=== PATIENT | male | born 1970 | race Caucasian/White ===

== ENCOUNTER 2020-05-06 08:24 | Emergency (ER) | payer SELFPAY ==
[~2020-05-06] VITALS: Ht 175.3 cm; Wt 68.2 kg
[~2020-05-06 08:24] MED LIST: ALPRAZOLAM0.5 M1 PO; AMOXICILLIN 50500 MG PO; DAZIDOX10 MG PO; FLEXERIL 1010 MG/TAB PO; NORCO 325 MG-51 TAB PO; PEN-V500 MG PO; PERCOCET 325 MG1 TA2 PO; ROXICODONE 55 MG/TAB PO
[2020-05-06] MEDS ORDERED: DOXYCYCLINE 10100 MG PO (09:22)
[2020-05-06] MEDS ORDERED: CEPHALEXIN500 M1 PO (09:22)
[2020-05-06 10:05] VITALS: BP 122/78; PULSE 88; TEMP 98.3
== END 2020-05-06 10:07 | disposition home or self-care (01) ==
LOC: COL.ER 08:24
DX: L02.512 Cutaneous abscess of left hand (principal); Z88.0 Allergy status to penicillin; Z88.8 Allergy status to other drugs, medicaments and biological substances